=== PATIENT | male | born 1965 | race Two or more races ===

== ENCOUNTER 2017-07-13 21:20 | Emergency (ER) | payer SELFPAY ==
[2017-07-13 21:33] VITALS: BP 134/78
[2017-07-13] MEDS ORDERED: ACETAMINOPHEN 325 MG TABLET PO ONE (21:41)
[2017-07-13] MEDS ORDERED: DIPH/PERTUSS(ACELL)/TETANUS VAC/PF 0.5 ML SYR (>=10YO) IM ONE (21:41)
[2017-07-13] MEDS ORDERED: BUPIVACAINE HCL 0.5 % INJ/PF 30 ML SDV INJ ONE (21:42)
--- NOTE | 2017-07-13 23:06 | RADIOLOGY REPORT (SQ) ---
EXAM DESCRIPTION: FINGER RIGHT CLINICAL HISTORY: 51 years, Male, fall, r 5th finger lac COMPARISON: None. NUMBER OF VIEWS: 3 Centimeters Findings: Swelling Bones, joints, and soft tissues of FINGER RIGHT appear otherwise intact. No significant effusion. IMPRESSION: Swelling
[2017-07-14] MEDS ORDERED: CEPHALEXIN 500 MG CAPSULE PO ONE (00:11)
--- NOTE | 2017-07-14 00:13 | ER Document Report ---
HPI - HPI Patient complains to provider of: Finger injury Onset: Just prior to arrival Onset/Duration: Sudden Quality of pain: Achy Pain Level: 2 Context: Patient had been drinking alcohol this evening and accidentally fell down some steps injuring his right fifth finger. Patient also with a superficial abrasion to the upper lip. Patient denies any loss of consciousness or head injury. Patient without any difficulty in moving his finger. Associated Symptoms: Other - Finger laceration Exacerbated by: Movement Relieved by: Denies Similar symptoms previously: No Recently seen / treated by doctor: No - ROS ROS below otherwise negative: Yes Systems Reviewed and Negative: Yes All other systems reviewed and negative - MUSCULOSKELETAL Musculoskeletal: REPORTS: Extremity pain - DERM Skin Problems: Laceration Past Medical History - General Information source: Patient, Relative - Social History Smoking Status: Never Smoker Frequency of alcohol use: Occasional Drug Abuse: None Occupation: [employer] work Lives with: Family Family History: Reviewed & Not Pertinent - Past Medical History Cardiac Medical History: Reports: Hx Hypertension Endocrine Medical History: Reports: Hx Diabetes Mellitus Type 1 Surgical Hx: Negative - Immunizations Hx Diphtheria, Pertussis, Tetanus Vaccination: No Vertical Provider Document - CONSTITUTIONAL Agree With Documented VS: Yes Exam Limitations: No Limitations General Appearance: WD/WN, No Apparent Distress - INFECTION CONTROL TRAVEL OUTSIDE OF THE [place] IN LAST 30 DAYS: No - HEENT HEENT: Atraumatic, Normocephalic Notes: Superficial 1 cm laceration to upper lip area no dental injury - NECK Neck: Normal Inspection, Supple. negative: Lymphadenopathy-Left, Lymphadenopathy-Right - RESPIRATORY Respiratory: Breath Sounds Normal, No Respiratory Distress - CARDIOVASCULAR Cardiovascular: Regular Rate, Regular Rhythm Pulses: Normal: Radial - BACK Back: Normal Inspection - MUSCULOSKELETAL/EXTREMETIES Musculoskeletal/Extremeties: LILI ISBELL - NEURO Level of Consciousness: Awake, Alert, Appropriate Motor/Sensory: No Motor Deficit, No Sensory Deficit - DERM Integumentary: Warm, Dry, Laceration - Patient with 4 cm irregular flap laceration to palmar surface of right fifth finger, no tendon injury, wound obviously contaminated with brown woody/grass debris Course - Vital Signs Vital signs: Temp Pulse Resp BP Pulse Ox 98.6 F 91 16 134/78 H 97 07/13/17 21:31 07/13/17 21:31 07/13/17 21:31 07/13/17 21:31 07/13/17 21:31 - Diagnostic Test Radiology reviewed: Image reviewed, Reports reviewed Procedures - Immobilization Right 5th digit Pre-Proc Neuro Vasc Exam: Normal Immobilizer type: Finger splint (Static) Performed by: RN Post-Proc Neuro Vasc Exam: Normal Alignment checked and good: Yes - Laceration/Wound Repair Right 5th digit Wound length (cm): 4 Wound's Depth, Shape: Irregular, Flap Anesthetic type: 0.5% Bupivacaine Volume Anesthetic (mLs): 3 Wound explored: Contaminated, Foreign body removed Irrigated w/ Saline (mLs): 800 Wound Debrided: Minimal Wound Repaired With: Sutures Suture Size/Type: 5:0, Nylon Number of Sutures: 12 Layer Closure?: No Post-procedure wound care: Sterile dressing applied, Splint applied Post-procedure NV exam normal: Yes Complications: No Hands front picture: 1 - lac Discharge - Discharge Clinical Impression: Finger laceration Qualifiers: Encounter type: initial encounter Finger: little finger Damage to nail status: without damage Foreign body presence: with foreign body Laterality: right Qualified Code(s): S61.226A - Laceration with foreign body of right little finger without damage to nail, initial encounter Condition: Stable Disposition: HOME, SELF-CARE Instructions: Laceration Care ([facility]), Prophylactic Antibiotic ([facility]), Tetanus Immunization Given ([facility]) Additional Instructions: Return immediately for any new or worsening symptoms Followup with your primary care provider, call tomorrow to make a followup appointment Suture removal in 12 days Return for any signs of infection including redness, swelling, increased pain, fever or purulent drainage Prescriptions: Cephalexin Monohydrate [Keflex 500 mg Capsule] 500 mg PO Q6H 5 Days capsule Naproxen [Naprosyn 250 Nmg Tablet] 1 tab PO BID #14 tablet Forms: Return to Work Referrals: EPIFANIO CRUZ DO [ACTIVE STAFF] - Follow up as needed
== END 2017-07-14 01:30 | disposition home or self-care (01) ==
LOC: ER 21:20
PROC: 0HQFXZZ Repair Right Hand Skin, External Approach (ICD-10-PCS; principal; 2017-07-13)
DX: S61.226A Laceration with foreign body of right little finger without damage to nail, initial encounter (principal); S01.511A Laceration without foreign body of lip, initial encounter; W10.9XXA Fall (on) (from) unspecified stairs and steps, initial encounter; E10.9 Type 1 diabetes mellitus without complications
CPT/HCPCS: 99284; 73140; 12042; J3490